=== PATIENT | female | born 1950 | race Caucasian/White ===

== ENCOUNTER → 2017-08-26 | Outpatient (CLI) | payer MEDICARE ==
[~2017-08-26] MED LIST: ACET-1600 PO; CALCIUM PO; CHOL5000 PO; CHRO200T2 PO; GABA300C10 PO; IBUP200T49 PO; LACT1CAP35 PO; MAGNESIUM PO; S-AD400T3 PO
[2017-08-26 14:36] LABS: BASOPHILS # (AUTO) 0.09 x10^3/uL (0-0.1); BASOPHILS % (AUTO) 1 % (0-1); EOSINOPHILS % (AUTO) 6 % (1-7); LYMPHOCYTES # (AUTO) 2.38 x10^3/uL (1-3.4); LYMPHOCYTES % (AUTO) 25 % (22-44); MD NO; MEAN CORPUSCULAR HEMOGLOBIN 29.9 pg (27.0-34.8); MEAN CORPUSCULAR HGB CONC 33.6 g/dL (32.4-35.8); MEAN CORPUSCULAR VOLUME 88.9 fL (80-100); MEAN PLATELET VOLUME 7.3 fL (7.4-10.4); MONOCYTES % (AUTO) 6 % (2-9); NEUTROPHILS # (AUTO) 5.87 x10^3/uL (1.8-6.8); NEUTROPHILS % (AUTO) 62 % (42-75); PLATELET COUNT 296 x10^3/uL (130-400); RED CELL DISTRIBUTION WIDTH 12.2 % (9.6-15.2)
[2017-08-26 14:45] LABS: ANION GAP 7 mmol/L (5-15); CALCIUM 8.4 mg/dL (8.5-10.1); CHLORIDE 110 mmol/L (98-107); CREATININE 1.14 mg/dL (0.55-1.02)
== END | disposition home or self-care (01) ==
LOC: STAR 13:02
PROVIDERS: ATTEND Obstetrics & Gynecology Female Pelvic Medicine and Reconstructive Surgery
DX: Z01.818 Encounter for other preprocedural examination (principal)
CPT/HCPCS: 36415; 71046; 80048; 85025; 93005

== ENCOUNTER 2017-09-29 05:29 | Day surgery (SDC) | payer MEDICARE ==
[~2017-09-29] VITALS: Ht 171.4 cm; Wt 80.3 kg
[2017-09-29] MEDS ORDERED: LACTATED RINGERS 1,000 ML IV SCH ×2 (06:04→09:59)
[2017-09-29 06:06] VITALS: BP 140/88
[2017-09-29] MEDS ORDERED: ACETAMINOPHEN 500 MG TABLET PO STA (06:39)
[2017-09-29] MEDS ORDERED: SCOPOLAMINE PATCH, 1.5MG PATCH.TD72 TD ONE (06:43)
[2017-09-29] MEDS ORDERED: ACETAMINOPHEN 500 MG TABLET ONE (06:43)
[2017-09-29] MEDS ORDERED: INDIGO CARMINE 0.8%, 5ML ONE ×2 (06:59→07:01)
[2017-09-29] MEDS ORDERED: SCOPOLAMINE 1MG PATCH TD SCH (07:00)
[2017-09-29] MEDS ORDERED: THROMBIN 5,000 UNIT VIAL TP ONE (07:00)
[2017-09-29] MEDS ORDERED: SCOPOLAMINE PATCH, 1.5MG PATCH.TD72 TD SCH (07:00)
[2017-09-29] MEDS ORDERED: ACETAMINOPHEN 500 MG TABLET PO ONE (07:00)
[2017-09-29] MEDS ORDERED: NEOMY/POLYMYXIN B GU IRR. 1 ML IRRIG ONE (07:00)
[2017-09-29] MEDS ORDERED: EPINEPHRINE 1 MG/ML, 1ML ONE (07:01)
[2017-09-29] MEDS ORDERED: MIDAZOLAM 1 MG/ML, 2ML ONE (07:16)
[2017-09-29] MEDS ORDERED: FENTANYL PF 100 MCG/2ML ONE ×2 (07:16→09:50)
[2017-09-29] MEDS ORDERED: ONDANSETRON 2MG/ML, 2ML ONE (07:32)
[2017-09-29] MEDS ORDERED: NEOSTIGMINE 1 MG/ML, 10ML ONE (07:32)
[2017-09-29] MEDS ORDERED: ROCURONIUM 10 MG/ML,10ML ONE (07:32)
[2017-09-29] MEDS ORDERED: CEFAZOLIN 1,000 MG ONE (07:32)
[2017-09-29] MEDS ORDERED: PROPOFOL 10 MG/ML, 20ML ONE (07:32)
[2017-09-29] MEDS ORDERED: DEXAMETHASONE 4 MG/ML, 1ML ONE (07:32)
[2017-09-29] MEDS ORDERED: SUCCINYLCHOLINE 20 MG/ML, 10ML ONE (07:32)
[2017-09-29] MEDS ORDERED: GLYCOPYRROLATE 0.2MG/1ML, 5ML ONE (07:32)
[2017-09-29] MEDS ORDERED: KETOROLAC 30 MG/1 ML ONE (07:35)
[2017-09-29] MEDS ORDERED: CEFOTETAN 1 GM ONE (07:35)
[2017-09-29] MEDS: BUPIVACAINE/PF 0.25% ONE ×2 (08:11→08:12)
[2017-09-29] MEDS ORDERED: METOPROLOL 1 MG/ML, 5ML IV PRN (08:30)
[2017-09-29] MEDS ORDERED: LABETALOL 5MG/ML, 20ML IV PRN (08:30)
[2017-09-29] MEDS ORDERED: EPHEDRINE 50 MG/ML, 1ML IVPush PRN (08:30)
[2017-09-29] MEDS ORDERED: MIDAZOLAM 1 MG/ML, 2ML IV PRN (08:30)
[2017-09-29] MEDS ORDERED: ALBUTEROL SULFATE 2.5 MG/3 ML NPPB PRN (08:30)
[2017-09-29] MEDS ORDERED: PROMETHAZINE 25 MG/ML, 1ML IV PRN (08:30)
[2017-09-29] MEDS ORDERED: ONDANSETRON 2MG/ML, 2ML IVPush PRN ×2 (08:30→10:00)
[2017-09-29] MEDS ORDERED: FENTANYL PF 100 MCG/2ML IV PRN (08:30)
[2017-09-29] MEDS ORDERED: HYDROcodone/APAP 7.5-325MG/15ML UDC PO PRN (08:30)
[2017-09-29] MEDS ORDERED: DIAZEPAM 5 MG/ML, 2ML IVPush PRN (08:30)
[2017-09-29] MEDS ORDERED: hydrALAzine 20 MG/ML, 1ML IV PRN (08:30)
[2017-09-29] MEDS ORDERED: OXYcodone 5 MG/5 ML ORAL.SOL UDC PO PRN (08:30)
[2017-09-29] MEDS ORDERED: MEPERIDINE/PF 25MG/0.5ML IVPush PRN (08:30)
[2017-09-29] MEDS ORDERED: PROMETHAZINE 12.5 MG SUPP PR PRN (08:30)
[2017-09-29] MEDS ORDERED: HYDROmorphone 1 MG/ML, 1ML IV PRN (08:30)
[2017-09-29] MEDS ORDERED: HYDROcodone/APAP 7.5-325MG/15ML UDC ONE (09:50)
[2017-09-29] MEDS ORDERED: HYDROcodone/APAP 5/325 TABLET PO PRN (10:00)
[2017-09-29] MEDS ORDERED: PROMETHAZINE 25 MG SUPP PR ONE (10:00)
[2017-09-29] MEDS ORDERED: IBUPROFEN 600 MG TABLET PO PRN (10:00)
== END 2017-09-29 13:48 ==
LOC: OUT 05:29
PROVIDERS: ATTEND Obstetrics & Gynecology Female Pelvic Medicine and Reconstructive Surgery
DX: N39.3 Stress incontinence (female) (male) (principal); N81.4 Uterovaginal prolapse, unspecified; Z90.49 Acquired absence of other specified parts of digestive tract; Z85.828 Personal history of other malignant neoplasm of skin
CPT/HCPCS: 57240; 57288; 88307; J0171; J0330; J0690; J1100; J1885; J2250; J2405; J2704; J2710; J3010; J3490; J7120; C1771; C1781; S0074